=== PATIENT | female | born 1975 | race Caucasian/White ===

== ENCOUNTER 2023-12-22 15:18 | Outpatient (CLI) | payer OTHER, SELFPAY ==
[2023-12-22 15:45] LABS: Basophils Percent Auto 0.2 % (0.2-1.2); Eosinophils Absolute Auto 0.2 K/mm3 (0-0.3); Eosinophils Percent Auto 3.4 % (0-4.4); Hematocrit 40.5 % (37.0-47.0); Immature Granulocyte Absolute 0.01 K/mm3 (0.00-0.031); Immature Granulocyte Percent A 0.2 % (0-0.5); Lymphocytes Absolute Auto 1.73 K/mm3 (0.9-3.2); Lymphocytes Percent Auto 30.9 % (18.3-44.2); Mean Corpuscular HGB Conc 32.1 g/dl (32-36); Mean Corpuscular Hemoglobin 29.7 pg (26-34); Mean Corpuscular Volume 92.5 fl (80-100); Monocytes Absolute Auto 0.5 K/mm3 (0.1-0.6); Monocytes Percent Auto 8.8 % (2.6-8.5); Neutrophils Absolute Auto 3.2 K/mm3 (1.3-6.7); Neutrophils Percent Auto 56.5 % (45.5-73.1); Platelet Count Result 214 k/mm3 (150-375); Red Blood Count 4.38 M/mm3 (4.2-5.4); Red Cell Distribution Width 12.5 % (11.5-14.5); White Blood Count 5.6 K/mm3 (4.5-10.0)
[2023-12-22 16:46] LABS: Iron 43 ug/dL (37-170)
[2023-12-22 16:48] LABS: Anion Gap 7 mmol/L (8-16); Blood Urea Nitrogen 8 mg/dL (7-17); Calcium 9.3 mg/dL (8.4-10.2); Carbon Dioxide 26 mmol/L (22-30); Chloride 105 mmol/L (98-107); Estimated Glomerular Filt Rate > 60; Glucose 89 mg/dL (65-110); Sodium 138 mmol/L (137-145)
[2023-12-22 17:01] LABS: Percent Iron Saturation 9 % (20-50)
[2023-12-22 17:53] LABS: Folic Acid 18.6 ng/mL (2.76->20)
[2023-12-25 16:13] LABS: Methylmalonic Acid 119 nmol/L (87-318)
[2023-12-28 11:07] LABS: Soluble Transferrin Receptor 1.76 mg/L (0.76-1.76)
== END 2023-12-22 15:19 | disposition home or self-care (01) ==
PROVIDERS: Nurse Practitioner Family; Visit Provider Internal Medicine Hematology & Oncology
DX: D50.9 Iron deficiency anemia, unspecified (principal)
CPT/HCPCS: 36415; 80048; 82607; 82728; 82746; 83540; 83550; 83921; 84238; 85025